=== PATIENT | male | born 1955 | race African-American/Black ===

== ENCOUNTER → 2021-02-08 | Outpatient (CLI) | payer MEDICARE, MEDICAID | END | disposition home or self-care (01) | LOC: MRI 09:39 | PROVIDERS: ATTEND Neurological Surgery | DX: M47.817 Spondylosis without myelopathy or radiculopathy, lumbosacral region (principal); R51.9 Headache, unspecified; M48.07 Spinal stenosis, lumbosacral region; M43.17 Spondylolisthesis, lumbosacral region; Q05.7 Lumbar spina bifida without hydrocephalus; M25.78 Osteophyte, vertebrae | CPT/HCPCS: 70551; 72148 ==